=== PATIENT | female | born 1980 | race Caucasian/White ===

== ENCOUNTER 2020-07-20 17:47 | Emergency (ER) | payer OTHER ==
[~2020-07-20] VITALS: Ht 165.1 cm; Wt 109.8 kg
[2020-07-20 18:30] LABS: BASO # 0.1 10^3/uL (0.0-0.2); BASO % 0.6 % (0.0-1.0); EOS # 0.2 10^3/uL (0.0-0.5); EOS % 1.4 % (0.0-3.0); HEMATOCRIT 38.7 % (36.0-47.0); HEMOGLOBIN 12.3 g/dl (12.0-15.5); LYMPH % 23.7 % (24.0-44.0); MEAN CORPUSCULAR HEMOGLOBIN 28.7 pg (27.0-33.0); MEAN CORPUSCULAR HGB CONC 31.8 g/dl (32.0-36.5); MEAN CORPUSCULAR VOLUME 90.4 fl (80.0-96.0); MONO # 0.6 10^3/uL (0.0-0.8); MONO % 4.6 % (0.0-5.0); NEUTROPHILS # 8.7 10^3/uL (1.5-8.5); NEUTROPHILS % 69.4 % (36.0-66.0); PLATELET COUNT, AUTOMATED 290 10^3/uL (150-450); RED BLOOD COUNT 4.28 10^6/uL (4.00-5.40); WHITE BLOOD COUNT 12.6 10^3/uL (4.0-10.0)
[2020-07-20 19:03] LABS: ALBUMIN 3.6 GM/DL (3.2-5.2); ALT/SGPT 18 U/L (12-78); BILIRUBIN,TOTAL 0.3 MG/DL (0.2-1.0); BLOOD UREA NITROGEN 15 MG/DL (7-18); CALCIUM LEVEL 9.4 MG/DL (8.5-10.1); CARBON DIOXIDE LEVEL 26 MEQ/L (21-32); CHLORIDE LEVEL 104 MEQ/L (98-107); CREATININE FOR GFR 0.93 MG/DL (0.55-1.30); GLOMERULAR FILTRATION RATE > 60.0 (>60); GLUCOSE, FASTING 97 MG/DL (70-100); POTASSIUM SERUM 3.7 MEQ/L (3.5-5.1); SODIUM LEVEL 140 MEQ/L (136-145); TOTAL PROTEIN 7.4 GM/DL (6.4-8.2)
--- NOTE | 2020-07-20 19:43 | REPVR ---
PROCEDURE INFORMATION: Exam: US First Trimester, Transabdominal and US , Transvaginal Exam date and time: 07/20/2020 7:23 PM Age: 40 years old Clinical indication: complicated by abdominal or pelvic pain; Right lower quadrant; First trimester; Gestational age or lmp: 04/30/2020; ; Additional info: Rlq pain TECHNIQUE: Imaging protocol: Real-time transabdominal obstetrical ultrasound of the maternal pelvis and a first trimester , less than 14 weeks 0 days, with image documentation. Transvaginal imaging was used for better evaluation of the fetus, adnexa, and/or cervix. COMPARISON: No relevant prior studies available. FINDINGS: MATERNAL: Uterus: Transabdominally, the uterus measures 9.8 x 5.4 by 5.8 cm. The endometrial stripe measures 1 cm. Endovaginally, the uterus measures 5.6 by 10 by 6.1 cm. Endovaginally, the endometrial stripe measures 1.3 cm in thickness. Cervix: Unremarkable. Right adnexa: Endovaginally, the right ovary measures 2.3 x 1.4 x 1.9 centimetres. Arterial blood flow demonstrated to the right ovary on pulse Doppler examination. Transabdominally, right ovary measures 2.1 x 2.3 x 1.9 cm. Left adnexa: Endovaginally, the left ovary is not seen as a separate structure. Transabdominally, left ovary not seen as a separate structure. Intraperitoneal space: No intraperitoneal free fluid. IMPRESSION: 1. There is no intrauterine gestational sac. The left ovary is not seen as a separate structure. The absence of an intrauterine in the clinical setting of positive beta HCG suggests the possibility of the following: Normal early intrauterine , recent miscarriage or ectopic . Serial beta hCG measurement and follow-up ultrasound recommended Electronically signed by: Dominique Roe On 07/20/2020 19:43:29 PM
[2020-07-20 21:38] VITALS: BP 139/92
== END 2020-07-20 21:55 | disposition home or self-care (01) ==
LOC: M ED 17:47
DX: O20.0 Threatened abortion (principal)

== ENCOUNTER → 2020-07-22 | Outpatient (REF) | payer OTHER | LOC: M LAB REF 11:34 | PROVIDERS: ATTEND Physician Assistant | DX: O20.0 Threatened abortion (principal); Z3A.00 Weeks of gestation of pregnancy not specified ==